=== PATIENT | female | born 1965 ===

== ENCOUNTER 2023-07-11 08:58 | Outpatient (CLI) | payer OTHER | END 2023-07-11 09:10 | disposition home or self-care (01) | LOC: MRI 08:58 | PROVIDERS: ATTEND Specialist | DX: C54.1 Malignant neoplasm of endometrium (principal) | CPT/HCPCS: 72196 ==

== ENCOUNTER 2023-10-28 11:15 | Inpatient (IN) | payer OTHER ==
[~2023-10-28] VITALS: Ht 170.2 cm; Wt 131.5 kg
[2023-10-28] MEDS ORDERED: AVAPRO150 MG (14:50)
[2023-10-28] MEDS ORDERED: ZOCOR20 MG (14:50)
[2023-10-31] MEDS ORDERED: POVIDONE-IODINE 118 ML BOTT TOP ONE (14:45)
[2023-10-31] MEDS ORDERED: CEFOXITIN SODIUM 2,000 MG VIAL IV SCH (14:45)
[2023-10-31] MEDS ORDERED: MORPHINE SULFATE 4 MG/ML CARTRIDGE IV PRN (16:30)
[2023-10-31] MEDS ORDERED: ONDANSETRON HCL 2 MG/ML VIAL IV PRN (16:30)
[2023-10-31] MEDS ORDERED: RINGERS SOLUTION,LACTATED 1,000 ML IV SCH (16:30)
[2023-10-31] MEDS ORDERED: OxyCODONE HCL/APAP UD (PERCOCET) PO PRN (16:30)
[2023-10-31] MEDS ORDERED: CEFOXITIN SODIUM 2,000 MG VIAL IV ONE (17:00)
[2023-10-31] MEDS ORDERED: SUGAMMADEX SODIUM 200 MG/2 ML VIAL IV ONE (17:00)
[2023-10-31] MEDS ORDERED: THROMBIN,HU/FIBRINOGEN/CALCIUM 10 ML SYRINGE TOP ONE (17:00)
[2023-10-31] MEDS ORDERED: GABAPENTIN 300 MG CAPSULE PO SCH (17:00)
[2023-10-31] MEDS ORDERED: KETOROLAC TROMETHAMINE 30 MG VIAL IM SCH (18:00)
[2023-10-31 20:16] LABS: MEAN CORPUSCULAR HEMOGLOBIN 33.2 pg (27.00-32.0); MEAN CORPUSCULAR HGB CONC 34.2 g/dl (32.0-36.0); PLATELET COUNT 190 K/uL (150-450); RED BLOOD COUNT 3.92 M/uL (4.00-6.00); RED CELL DISTRIBUTION WIDTH 13.2 % (11.5-14.5)
[2023-10-31 20:35] LABS: ALBUMIN 3.7 gm/dL (3.4-5.0); CALCIUM 9.4 mg/dL (8.5-10.1); CREATININE SERUM 0.74 mg/dL (0.55-1.02); GFR 80.05; MAGNESIUM 1.9 mg/dL (1.8-2.4); PHOSPHOROUS 4.4 mg/dL (2.5-4.9); POTASSIUM 4.66 mEq/L (3.5-5.1)
[2023-10-31] MEDS ORDERED: FAMOTIDINE/PF 20 MG/2 ML VIAL IV PUSH SCH (21:00)
[2023-11-01] MEDS ORDERED: CEFAZOLIN SODIUM 1,000 MG VIAL IV SCH (05:00)
[2023-11-01 07:04] LABS: HEMATOCRIT 34.1 % (36.0-45.00); HEMOGLOBIN 11.7 g/dL (12.0-15.00); MEAN CELL VOLUME 96.3 fL (80.00-100.00); MEAN CORPUSCULAR HEMOGLOBIN 33.2 pg (27.00-32.0); MEAN CORPUSCULAR HGB CONC 34.4 g/dl (32.0-36.0); PLATELET COUNT 172 K/uL (150-450); RED BLOOD COUNT 3.54 M/uL (4.00-6.00); RED CELL DISTRIBUTION WIDTH 13.6 % (11.5-14.5)
[2023-11-01 07:34] LABS: ALBUMIN 3.3 gm/dL (3.4-5.0); CALCIUM 8.9 mg/dL (8.5-10.1); CREATININE SERUM 0.66 mg/dL (0.55-1.02); GFR 91.35; PHOSPHOROUS 5.1 mg/dL (2.5-4.9); POTASSIUM 4.56 mEq/L (3.5-5.1)
[2023-11-01] MEDS ORDERED: FUROsemide 20 MG/2 ML VIAL IV NR (08:15)
[2023-11-01] MEDS ORDERED: IRBESARTAN 150 MG TABLET PO SCH ×2 (09:00)
[2023-11-01] MEDS ORDERED: ENOXAPARIN SODIUM 40 MG/0.4 ML SYRINGE SUBCUTANEO SCH (09:00)
[2023-11-01] MEDS ORDERED: IBUprofen 800 MG TABLET PO PRN (17:45)
[2023-11-02 02:28] LABS: HEMATOCRIT 31.5 % (36.0-45.00); HEMOGLOBIN 10.9 g/dL (12.0-15.00); MEAN CELL VOLUME 95.8 fL (80.00-100.00); MEAN CORPUSCULAR HEMOGLOBIN 33.3 pg (27.00-32.0); MEAN CORPUSCULAR HGB CONC 34.8 g/dl (32.0-36.0); PLATELET COUNT 140 K/uL (150-450); RED BLOOD COUNT 3.29 M/uL (4.00-6.00); RED CELL DISTRIBUTION WIDTH 13.6 % (11.5-14.5)
== END 2023-11-02 09:43 | disposition home or self-care (01) | DRG 740 ==
LOC: O/R 10-31 06:15 → SURH 10-31 11:15 → OB/GYN 10-31 17:35 → SURH 10-31 21:15 → OB/GYN 11-02 09:43
PROVIDERS: ADMIT Obstetrics & Gynecology Gynecologic Oncology; ATTEND Obstetrics & Gynecology Gynecologic Oncology
PROC: 0UT70ZZ Resection of Bilateral Fallopian Tubes, Open Approach (ICD-10-PCS; 2023-10-31)
PROC: 0UT20ZZ Resection of Bilateral Ovaries, Open Approach (ICD-10-PCS; 2023-10-31)
PROC: 07BC0ZZ Excision of Pelvis Lymphatic, Open Approach (ICD-10-PCS; 2023-10-31)
PROC: 0TN70ZZ Release Left Ureter, Open Approach (ICD-10-PCS; 2023-10-31)
PROC: 0TN60ZZ Release Right Ureter, Open Approach (ICD-10-PCS; 2023-10-31)
PROC: 0UN00ZZ Release Right Ovary, Open Approach (ICD-10-PCS; 2023-10-31)
PROC: 0DNW0ZZ Release Peritoneum, Open Approach (ICD-10-PCS; 2023-10-31)
PROC: 0DBU0ZZ Excision of Omentum, Open Approach (ICD-10-PCS; 2023-10-31)
PROC: 0UT90ZZ Resection of Uterus, Open Approach (ICD-10-PCS; principal; 2023-10-31 21:15)
DX: C54.1 Malignant neoplasm of endometrium (principal); C56.1 Malignant neoplasm of right ovary; Z20.822 Contact with and (suspected) exposure to COVID-19; N80.101 Endometriosis of right ovary, unspecified depth; N80.03 Adenomyosis of the uterus; D25.9 Leiomyoma of uterus, unspecified

== ENCOUNTER 2023-11-25 12:20 | Emergency (ER) | payer OTHER ==
[~2023-11-25] VITALS: Ht 170.2 cm; Wt 131.5 kg
[~2023-11-25 12:20] MED LIST: AVAPRO150 MG; ZOCOR20 MG
[2023-11-25 14:59] LABS: HEMOGLOBIN 13.1 g/dL (12.0-15.00); MEAN CELL VOLUME 95.2 fL (80.00-100.00); MEAN CORPUSCULAR HEMOGLOBIN 32.8 pg (27.00-32.0); MEAN CORPUSCULAR HGB CONC 34.4 g/dl (32.0-36.0); PLATELET COUNT 190 K/uL (150-450); RED BLOOD COUNT 3.99 M/uL (4.00-6.00); RED CELL DISTRIBUTION WIDTH 13.2 % (11.5-14.5)
[2023-11-25 15:37] LABS: CALCIUM 9.6 mg/dL (8.5-10.1); CREATININE SERUM 0.69 mg/dL (0.55-1.02); GFR 86.78; POTASSIUM 4.26 mEq/L (3.5-5.1)
== END 2023-11-25 18:16 | disposition home or self-care (01) ==
LOC: ER 12:20
PROVIDERS: Emergency Medicine
DX: L03.311 Cellulitis of abdominal wall (principal); I10 Essential (primary) hypertension